=== PATIENT | female | born 1975 | race Caucasian/White ===

== ENCOUNTER 2022-08-11 18:50 | Emergency (ER) | payer SELFPAY ==
[2022-08-11] MEDS ORDERED: LEVALBUTEROL 1.25 MG/3 ML NEB ONE (19:36)
[2022-08-11] MEDS ORDERED: dexAMETHasone 10 MG/ML VIAL ONE (19:36)
--- NOTE | 2022-08-11 20:07 | RAD REPORT ---
EXAM DESCRIPTION: RAD - Chest Pa And Lat (2 Views) - 08/11/2022 7:58 pm CLINICAL HISTORY: COUGH COMPARISON: None FINDINGS: Lines: None. Lungs: No evidence of edema or pneumonia. Pleural: No significant pleural effusions or pneumothorax. Cardiac: The heart size is within normal limits. Mediastinum: Within normal limits. Bones: No acute fractures. Other: None IMPRESSION: No acute cardiopulmonary disease.
[2022-08-11 21:06] LABS: SARS-COV-2 RT PCR NEGATIVE (NEGATIVE)
--- NOTE | 2022-08-11 21:16 | ER ---
Nurse's Notes [facility] Name: Brenda Buchanan Age: 46 yrs Sex: Female : 1975 Arrival Date: 08/11/2022 Time: 18:51 Bed 12 Private MD: Diagnosis: Cough;Acute bronchospasm Presentation: 08/11 18:57 Chief complaint: Patient states: "I BEEN CONGESTED FOR TWO WEEKS. I WENT TO THE [facility] TODAY AND THEY DIAGNOSED ME WITH WALKING PNEUMONIA. I DIDN'T WANT TO WAIT FOR MY MEDICINE AT [facility] SO I'M HERE.". Coronavirus screen: At this time, the client does not indicate any symptoms associated with coronavirus-19. Ebola Screen: No symptoms or risks identified at this time. Initial Sepsis Screen: Does the patient meet any 2 criteria? No. Patient's initial sepsis screen is negative. Does the patient have a suspected source of infection? No. Patient's initial sepsis screen is negative. Risk Assessment: Do you want to hurt yourself or someone else? Patient reports no desire to harm self or others. Onset of symptoms is unknown. 18:57 Method Of Arrival: Ambulatory bp 18:57 Acuity: TRAVIS 3 bp Triage Assessment: 21:32 General: Appears in no apparent distress. comfortable, Behavior is calm, cooperative, ld1 appropriate for age. Pain: Denies pain. EENT: No signs and/or symptoms were reported regarding the EENT system. Neuro: Level of Consciousness is awake, alert, obeys commands, Oriented to person, place, time, situation. Cardiovascular: Capillary refill < 3 seconds Patient's skin is warm and dry. Respiratory: Reports shortness of breath Airway is patent Respiratory effort is even, unlabored, Onset: The symptoms/episode began/occurred gradually, the patient has mild shortness of breath. Historical: - Allergies: 18:59 No Known Allergies; bp - Home Meds: 18:59 Lexapro Oral [Active]; bp - PMHx: 18:59 None; bp - PSHx: 18:59 section; Tonsillectomy; Ligation of fallopian tube; bp - Immunization history:: Adult Immunizations up to date. - Social history:: Smoking status: Patient reports the use of cigarette tobacco products, smokes one pack cigarettes per day. Screenin:23 [facility] ED Fall Risk Assessment (Adult) History of falling in the last 3 months, ld1 including since admission No falls in past 3 months (0 pts). Abuse screen: Denies threats or abuse. Denies injuries from another. Nutritional screening: No deficits noted. Tuberculosis screening: No symptoms or risk factors identified. Assessment: 20:22 Reassessment: No changes from previously documented assessment. Patient and/or family ld1 updated on plan of care and expected duration. Pain level reassessed. Patient is alert, oriented x 3, equal unlabored respirations, skin warm/dry/pink. See triage assessment. 21:31 Reassessment: Patient appears in no apparent distress at this time. No changes from ld1 previously documented assessment. Patient and/or family updated on plan of care and expected duration. Pain level reassessed. Patient is alert, oriented x 3, equal unlabored respirations, skin warm/dry/pink. Patient states feeling better. 21:32 Pain: Denies pain. Cardiovascular: Capillary refill < 3 seconds Patient's skin is warm ld1 and dry. Respiratory: Airway Respiratory effort is even, unlabored, Breath sounds are clear bilaterally. Vital Signs: 18:57 BP 165 / 95; Pulse 74; Resp 16; Temp 98.9; Pulse Ox 98% ; Weight 63.5 kg; Height 5 ft. bp 2 in. (157.48 cm); 20:22 BP 156 / 84; Pulse 82; Resp 18; Pulse Ox 100% on R/A; ld1 21:31 BP 149 / 76; Pulse 81; Resp 18; Pulse Ox 100% on R/A; Pain 0/10; ld1 18:57 Body Mass Index 25.61 (63.50 kg, 157.48 cm) bp ED Course: 18:51 Patient arrived in ED. am2 18:52 Pete Vazquez PA is PHCP. jm 18:52 Sheila Guadalupe MD is Attending Physician. jmm 18:58 Triage completed. bp 18:59 Arm band placed on. bp 19:32 Mee Arevalo, RN is Primary Nurse. ld1 20:00 XRAY Chest Pa And Lat (2 Views) In Process Unspecified. EDMS 20:20 COVID-19/FLU A+B Sent. ld1 20:23 Patient has correct armband on for positive identification. Placed in gown. Bed in low ld1 position. Call light in reach. Side rails up X2. 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 Pulse ox on. NIBP on. Door closed. Noise minimized. Warm blanket given. 20:23 No provider procedures requiring assistance completed. Patient did not have IV access ld1 during this emergency room visit. Administered Medications: 19:20 Drug: Decadron (dexamethasone) 10 mg Route: IM; Site: right deltoid; ld1 19:49 Drug: Xopenex (levalbuterol) (3) 1.25 mg Route: Inhalation; ld1 Medication: 20:23 VIS not applicable for this client. ld1 Outcome: 21:15 Discharge ordered by . kena 21:31 Discharged to home ambulatory, with family. ld1 21:31 Condition: stable 21:31 Discharge instructions given to patient, family, Instructed on discharge instructions, follow up and referral plans. medication usage, Demonstrated understanding of instructions, follow-up care, medications, Prescriptions given X 4. 21:33 Patient left the ED. ld1 Signatures: Dispatcher [employer] EDMS Pete Vazquez PA PA jmm Moreno, Amanda am2 Paolo Clarke, RN RN bp Mee Arevalo, RN RN ld1
--- NOTE | 2022-08-11 21:16 | EDPHYS ---
Physician Documentation [facility] Name: Brenda Buchanan Age: 46 yrs Sex: Female : 1975 Arrival Date: 08/11/2022 Time: 18:51 Bed 12 Private MD: ED Physician Sheila Guadalupe HPI: 08/11 21:11 This 46 yrs old Female presents to ER via Ambulatory with complaints of Breathing jmm Difficulty. 21:11 The patient has shortness of breath at rest. Onset: The symptoms/episode began/occurred jmm gradually. Duration: The symptoms are continuous, and are steadily getting worse. The patient's shortness of breath is aggravated by nothing, is alleviated by nothing. This is a 46 year old female with no chronic medical conditions that presents to the ED with complaints of cough, wheezing beginning approx 2 weeks ago. Denies vomiting. . Historical: - Allergies: 18:59 No Known Allergies; bp - Home Meds: 18:59 Lexapro Oral [Active]; bp - PMHx: 18:59 None; bp - PSHx: 18:59 section; Tonsillectomy; Ligation of fallopian tube; bp - Immunization history:: Adult Immunizations up to date. - Social history:: Smoking status: Patient reports the use of cigarette tobacco products, smokes one pack cigarettes per day. ROS: 21:11 Constitutional: Positive for body aches, chills. jmm 21:11 Respiratory: Positive for cough, wheezing. 21:11 Abdomen/GI: Negative for vomiting, diarrhea. 21:11 All other systems are negative. Exam: 21:11 Constitutional: This is a well developed, well nourished patient who is awake, alert, jmm and in no acute distress. Head/Face: atraumatic. Eyes: EOMI, no conjunctival erythema appreciated ENT: Moist Mucus Membranes Neck: Trachea midline, Supple Chest/axilla: Normal chest wall appearance and motion. Cardiovascular: Regular rate and rhythm. No edema appreciated 21:11 Back: Normal ROM Skin: General appearance color normal MS/ Extremity: Moves all extremities, no obvious deformities appreciated, no edema noted to the lower extremities Neuro: Awake and alert Psych: Behavior is normal, Mood is normal, Patient is cooperative and pleasant 21:11 Respiratory: mild respiratory distress is noted, Respirations: labored breathing, that is mild, Breath sounds: wheezing: that is moderate, is heard diffusely. Vital Signs: 18:57 BP 165 / 95; Pulse 74; Resp 16; Temp 98.9; Pulse Ox 98% ; Weight 63.5 kg; Height 5 ft. bp 2 in. (157.48 cm); 20:22 BP 156 / 84; Pulse 82; Resp 18; Pulse Ox 100% on R/A; ld1 21:31 BP 149 / 76; Pulse 81; Resp 18; Pulse Ox 100% on R/A; Pain 0/10; ld1 18:57 Body Mass Index 25.61 (63.50 kg, 157.48 cm) bp MDM: 19:05 Patient medically screened. [facility] 21:14 Data reviewed: vital signs, nurses notes. ED course: Decreased wheezing on [facility] reevaluation. Patient states feeling much better. Patient advised to follow up with pcp and otherwise given strict return precautions. patient understood and agrees with the plan of care. . 08/11 19:06 Order name: COVID-19/FLU A+B; Complete Time: 21:09 [facility] 08/11 18:57 Order name: XRAY Chest Pa And Lat (2 Views); Complete Time: 20:12 bp Administered Medications: 19:20 Drug: Decadron (dexamethasone) 10 mg Route: IM; Site: right deltoid; ld1 19:49 Drug: Xopenex (levalbuterol) (3) 1.25 mg Route: Inhalation; ld1 Disposition Summary: 08/11/22 21:15 Discharge Ordered Location: Home [facility] Condition: Stable [facility] Diagnosis - Cough [facility] - Acute bronchospasm [facility] Followup: [facility] - With: Private Physician - When: 2 - 3 days - Reason: Recheck today's complaints, Continuance of care, Re-evaluation by your physician Discharge Instructions: - Discharge Summary Sheet [facility] - Cough, Adult [facility] Forms: - Medication Reconciliation Form [facility] - Thank You Letter [facility] - Antibiotic Education [facility] - Prescription Opioid Use [facility] Prescriptions: - promethazine-DM - take 10 milliliter by ORAL route every 4-6 hours As needed; 200 milliliter; [facility] Refills: 0, Product Selection Permitted - Prednisone 20 mg Oral Tablet - take 3 tablets by ORAL route once daily for 5 days; 15 tablet; Refills: 0, jmm Product Selection Permitted - Zithromax Z-Chava 250 mg Oral Tablet - take 1 tablet by ORAL route as directed for 5 days Day 1 - take two (2) tablets [facility] one time. Day 2, 3, 4 , 5 take one (1) tablet once daily.; 6 tablet; Refills: 0, Product Selection Permitted - albuterol sulfate 90 mcg/actuation Inhalation HFA aerosol inhaler - inhale 2 puff by INHALATION route every 4-6 hours; 1 Pump; Refills: 0, Product jm Selection Permitted Signatures: Dispatcher [employer] Pete Richard PA PA jmm Peltier, Brian, RN RN bp Mee Arevalo RN RN ld1
[2022-08-11 21:46] VITALS: TEMP 98.9
[2022-08-11 21:47] VITALS: O2SAT 100
[2022-08-11 21:48] VITALS: BP 149/76
== END 2022-08-11 21:33 | disposition home or self-care (01) ==
LOC: ER 18:50
DX: J98.01 Acute bronchospasm (principal); Z20.822 Contact with and (suspected) exposure to COVID-19
CPT/HCPCS: 0240U; 71046; 96372; 99285; J1100; J7614